=== PATIENT | male | born 1970 | race Caucasian/White ===

== ENCOUNTER → 2021-05-29 | Outpatient (CLI) | payer OTHER ==
[~2021-05-29] VITALS: Ht 185.4 cm; Wt 81.8 kg
[~2021-05-29] MED LIST: [UNRECOGNIZED DRUG - REMARK]
== END | disposition home or self-care (01) ==
LOC: STAR 08:00 → EDSTATUS 05-31 13:30
PROVIDERS: ATTEND Surgery
DX: Z01.812 Encounter for preprocedural laboratory examination (principal); U07.1 COVID-19; K40.90 Unilateral inguinal hernia, without obstruction or gangrene, not specified as recurrent
CPT/HCPCS: U0003; U0005